=== PATIENT | male | born 1970 | race Caucasian/White ===

== ENCOUNTER 2022-06-04 22:03 | Emergency (ER) | payer OTHER ==
[~2022-06-04] VITALS: Ht 177.8 cm; Wt 98.9 kg
--- NOTE | 2022-06-04 22:15 | NUR ---
WITH PATIENT FOR MSE.
[2022-06-04 22:30] VITALS: BP_SYST 109
[2022-06-04] MEDS ORDERED: IPRATROPIUM/ALBUTEROL SULFATE 3 ML AMPUL.NEB (DUONEB) INH ONE (23:00)
[2022-06-04 23:28] LABS: BASOPHILS % (AUTO) 0.5 % (0.0-2.0); EOSINOPHILS # (AUTO) 0.1 K/uL (0.0-0.4); EOSINOPHILS % (AUTO) 1.5 % (0.0-4.0); HEMATOCRIT 40.6 % (36-54); HEMOGLOBIN 13.6 g/dL (14.0-18.0); LYMPHOCYTES # (AUTO) 2.6 K/uL (1.0-5.5); LYMPHOCYTES % (AUTO) 29.2 % (20.5-51.5); MEAN CORPUSCULAR HEMOGLOBIN 29 pg (27-31); MEAN CORPUSCULAR HGB CONC 34 % (32-36); MEAN CORPUSCULAR VOLUME 87 fL (79.0-98.0); MONOCYTES # (AUTO) 0.7 K/uL (0.0-1.0); MONOCYTES % (AUTO) 8.2 % (1.7-9.3); NEUTROPHILS # (AUTO) 5.4 K/uL (1.8-7.7); NEUTROPHILS % (AUTO) 60.6 % (40.0-70.0); PLATELET COUNT (AUTO) 228 K/uL (130-430); RED BLOOD CELL COUNT(AUTO) 4.65 MIL/uL (4.2-6.2); RED CELL DISTRIBUTION WIDTH 13.5 % (9.0-15.0); WHITE BLOOD COUNT (AUTO) 8.8 K/uL (4.8-10.8)
[2022-06-04 23:56] LABS: CALCIUM 8.6 mg/dL (8.4-11.0); CREATININE 1.22 mg/dL (0.55-1.30)
[2022-06-05] LABS: ALBUMIN 3.8 g/dL (3.4-4.8); TOTAL BILIRUBIN 0.2 mg/dL (0.0-1.0)
--- NOTE | 2022-06-05 | NUR ---
PT FROM HOME WITH C/O OF SOB FOR 2 DAYS. PT STATES YESTERDAY AND TODAY HE WOKE UP SOB AND FELL OUT OF BREATH AFTER GETTING ANXIOUS. PT PRESENT WITH BRUISING TO BOTTOM LIP AND ON BRIDGE OF NOSE. WHEN I REC PATIENT, PT HAD ALREADY REC BREATHING TX AND STATING HE FEELS RELIEF.
--- NOTE | 2022-06-05 01:00 | NUR ---
PT RESTING IN BED WITH EYES CLOSED. PT WITH EVEN AND UNLABORED RESP NOTED, NAD. SAFETY PRECAUTIONS IN PLACE.
[2022-06-05] MEDS ORDERED: ALBMDI INH (01:28)
[2022-06-05] MEDS ORDERED: BENZ100C92 PO (02:48)
[2022-06-05 02:50] VITALS: BP_SYST 109
--- NOTE | 2022-06-05 02:50 | NUR ---
Patient given written and verbal discharge instructions and verbalizes understanding. ER DR. VICENTE discussed with patient the results and treatment provided. Patient in stable condition. ID arm band removed. Rx of ALBUTEROL given. Patient educated on pain management and to follow up with PMD. Pain Scale 0. Opportunity for questions provided and answered. Medication side effect fact sheet provided.
== END 2022-06-05 02:50 | disposition home or self-care (01) ==
LOC: SED 22:03
DX: J40 Bronchitis, not specified as acute or chronic (principal); J06.9 Acute upper respiratory infection, unspecified; R05.9 Cough, unspecified; R09.81 Nasal congestion; R06.02 Shortness of breath; Z79.899 Other long term (current) drug therapy; Z20.822 Contact with and (suspected) exposure to COVID-19
CPT/HCPCS: 36415; 71045; 80053; 84484; 85025; 93005; 94640; 99285